=== PATIENT | female | born 1960 | race Caucasian/White ===

== ENCOUNTER 2017-10-24 09:46 | Emergency (ER) | payer BC ==
[2017-10-24 12:27] VITALS: BP 133/72
--- NOTE | 2017-10-24 13:11 | UC ---
Throat Pain/Nasal Andrew HPI - HPI Summary HPI Summary: 57 y/o female presents to the urgent care c/o sore throat, chills, body aches, sinus congestion w/ clear nasal discharge since last 10/21/2017. Pt states swollen glands, Pain is 6/10. Mild PLUMMER. 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 She has taking Nyquill to alleviate symptoms. Pt denies SOB, chest pain, abdominal pain, N/V/D - History of Current Complaint Chief Complaint: UCRespiratory Stated Complaint: THROAT PAIN Time Seen by Provider: 10/24/17 13:10 Hx Obtained From: Patient ?: No Onset/Duration: Gradual Onset, Lasting Days - 4 days, Still Present, Worse Since - yesterday Severity: Moderate Pain Intensity: 4 Pain Scale Used: 0-10 Numeric Cough: None Associated Signs & Symptoms: Positive: Dysphagia, Nasal Discharge, Fever - Epiglottits Risk Factors Epiglottis Risk Factors: Negative - Allergies/Home Medications Allergies/Adverse Reactions: Allergies Allergy/AdvReac Type Severity Reaction Status Date / Time MS Azithromycin AdvReac Intermediate Rash Verified 10/24/17 12:18 [From Zithromax] MS Sulfa Antibiotics AdvReac Unknown Unknown Verified 10/24/17 12:18 [Sulfa Antibiotics] Reaction Details Home Medications: Home Medications Sertraline* [Zoloft*] 50 mg PO DAILY 10/24/17 [History Confirmed 10/24/17] PMH/Surg Hx/FS Hx/Imm Hx Previously Healthy: Yes Psychological History: Depression - Surgical History Surgical History: Yes Surgery Procedure, Year, and Place: APPENDECTOMY ABOUT 5 YEARS AGO. BREAST REDUCTION SURGERY ABOUT 12 YEARS AGO - Family History Known Family History: Positive: None - Pt denies PMHX - Social History Occupation: Employed Full-time Lives: With Family Alcohol Use: None Substance Use Type: None Smoking Status (MU): Never Smoked Tobacco Review of Systems Constitutional: Fever, Chills Skin: Negative Eyes: Negative ENT: Sore Throat, Nasal Discharge Respiratory: Negative Cardiovascular: Negative Gastrointestinal: Negative Genitourinary: Negative Motor: Negative Neurovascular: Negative Musculoskeletal: Negative Neurological: Headache Psychological: Negative Is Patient Immunocompromised?: No All Other Systems Reviewed And Are Negative: Yes Physical Exam Triage Information Reviewed: Yes Vital Signs: Initial Vital Signs Temp 98.3 F 10/24/17 12:21 Pulse 91 10/24/17 12:21 Resp 16 10/24/17 12:21 BP 133/72 10/24/17 12:21 Pulse Ox 97 10/24/17 12:21 - Additional Comments VITAL SIGNS: Reviewed. GENERAL: Patient is a well developed and nourished female who is sitting comfortable in the examining table. Patient is not in any acute respiratory distress. HEAD AND FACE: No signs of trauma. No ecchymosis, hematomas or skull depressions. No sinus tenderness. EYES: PERRLA, EOMI x 2, No injected conjunctiva, no nystagmus. No photophobia. EARS: Hearing grossly intact. Ear canals and tympanic membranes are within normal limits. MOUTH: Positive pharynx with erythema, exudates, palatal petechiae. B/L tonsillar enlargement with exudate. Uvula in midline. NECK: Supple, trachea is midline, Positive anterior cervical lymphadenopathy, no JVD, no carotid bruit, no c-spine tenderness, neck with full ROM. No meningeal signs, no Kernig's or brudzinskis signs. CHEST: Symmetric, no tenderness at palpation LUNGS: Clear to auscultation bilaterally. No wheezing or crackles. CVS: Regular rate and rhythm, S1 and S2 present, no murmurs or gallops appreciated. ABDOMEN: Soft, non-tender. No signs of distention. No rebound no guarding, and no masses palpated. Bowel sounds are normal. EXTREMITIES: FROM in all major joints, no edema, no cyanosis or clubbing. NEURO: Alert and oriented x 3. No acute neurological deficits. Speech is normal and follows commands. SKIN: Dry and warm Throat Pain/Nasal Course/Dx - Course Course Of Treatment: 57 y/o female presents to the urgent care c/o sore throat, chills, body aches, sinus congestion w/ clear nasal discharge since last 10/21/2017. Pt states swollen glands, Pain is 6/10. Mild PLUMMER. 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 She has taking Nyquill to alleviate symptoms. Pt denies SOB, chest pain, abdominal pain, N/V/ D. Hx obtained. Pt w/ pharyngitis on examiantion. Rapid strep ordered: result: positive. Strep pharyngitis. Influenza A&B ordered: negative. Rx Amoxicillin PO and Ibuprofen PO for pain and swelling. PT Advised on hand washing to avoid spreading. Also advised to rest, eat well and avoid strenuous exercise. If symptoms do not improve or worsen advised to return to the urgent care or f/u with her PCP for further evaluation and treatment. PT understood and agreed - Differential Dx/Diagnosis Differential Diagnosis/HQI/PQRI: Influenza, Laryngitis, Mononucleosis, Otitis Media, Pharyngitis, Sinusitis, Tonsillitis, URI Provider Diagnoses: 1- Strep pharyngitis Discharge - Discharge Plan Condition: Stable Disposition: HOME Prescriptions: Amoxicillin PO (*) [Amoxicillin 500 MG CAP*] 500 mg PO Q12H #20 cap Ibuprofen TAB* [Motrin TAB* 800 MG] 800 mg PO Q6H PRN #20 tab PRN Reason: Sore Throat Patient Education Materials: Strep Throat (ED) Referrals: Brent Rolle MD [Primary Care Provider] - If Needed Additional Instructions: 1- Please take the full course of the antibiotic to avoid resistance. 2-Please take ibuprofen PO q6-8hrs prn as instructed after meals to alleviate pain and swelling. Increase fluid intake, eat well, rest and avoid strenuous exercise 3-If symptoms do not improve or worsen please return to the urgent care or f/u with your PCP for further evaluation and treatment.
== END 2017-10-24 14:05 | disposition home or self-care (01) ==
LOC: UCEAST 09:46
DX: J02.0 Streptococcal pharyngitis (principal); F32.9 Major depressive disorder, single episode, unspecified; Z88.1 Allergy status to other antibiotic agents; Z88.2 Allergy status to sulfonamides
CPT/HCPCS: 87502; 87651; 99212; G0463